=== PATIENT | female | born 1985 | race African-American/Black ===

== ENCOUNTER 2022-07-02 07:07 | Emergency (ER) | payer OTHER ==
[~2022-07-02] VITALS: Ht 160 cm; Wt 114.0 kg
[2022-07-02] MEDS ORDERED: KETOROLAC 60MG/2ML VIAL IM ONE (08:45)
[2022-07-02 09:04] LABS: CLARITY URINE CLOUDY (CLEAR); COLOR URINE YELLOW (YELLOW); KETONES URINE TRACE (NEGATIVE); LEUKOCYTE ESTERASE URINE 3+ (NEGATIVE); NITRITE URINE NEGATIVE (NEGATIVE); OCCULT BLOOD URINE TRACE (NEGATIVE); PH URINE 5.5 (4.5-8.0); PROTEIN URINE NEGATIVE (NEGATIVE); SPECIFIC GRAVITY URINE 1.015 (1.005-1.030); UROBILINOGEN URINE 0.2 E.U./dL (0.2-1.0)
[2022-07-02] MEDS ORDERED: CYCL10TA21 MT (10:25)
[2022-07-02] MEDS ORDERED: CEPH500C2 MT (10:25)
[2022-07-02] MEDS ORDERED: IBUP-2029 MT (10:25)
[2022-07-02] MEDS ORDERED: MORPHINE SULFATE 10 MG/ML CPJ IM ONE (10:30)
[2022-07-02 11:21] VITALS: BP 127/86
== END 2022-07-02 11:22 | disposition home or self-care (01) ==
LOC: ER 08:31
DX: N10 Acute pyelonephritis (principal); I10 Essential (primary) hypertension
CPT/HCPCS: 81003; 81025; 87077; 87086; 87186; 96372; 99284; J1885; J2270; Z7610